=== PATIENT | male | born 1990 | race African-American/Black ===

== ENCOUNTER 2017-01-31 11:26 | Emergency (ER) | payer OTHER, BC ==
[~2017-01-31] VITALS: Ht 172.7 cm; Wt 65.8 kg
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
== END 2017-01-31 16:07 | disposition home or self-care (01) ==
LOC: CED 11:26 → CFTX 11:26
DX: S39.012A Strain of muscle, fascia and tendon of lower back, initial encounter (principal); F17.210 Nicotine dependence, cigarettes, uncomplicated; V43.62XA Car passenger injured in collision with other type car in traffic accident, initial encounter
CPT/HCPCS: 72100; 96372; 99284; J1885